=== PATIENT | female | born 1980 | race Caucasian/White ===

== ENCOUNTER 2021-02-16 17:39 | Emergency (ER) | payer MEDICAID ==
[~2021-02-16] VITALS: Ht 162.6 cm; Wt 86.0 kg
[2021-02-16 18:10] VITALS: BP 125/76
--- NOTE | 2021-02-16 18:29 | RAD ---
Three-view right ankle: AP lateral oblique views There is minimal widening of the lateral mortise. There is subtle deformity of the distal fibula with out interruption of cortex. There is soft tissue swelling over the medial malleolus. The remaining vi sualized osseous structures appear normal. IMPRESSION: 1. Minimal widening of the lateral mortise suggests ligamentous laxity or injury. 2. Deformity of the distal fibula above the level plafond could be secondary to an old injury. Electronically signed by: Dickson Duncan III, MD (02/16/2021 6:27 PM) [facility]
--- NOTE | 2021-02-16 18:40 | PHYS DOC ---
Past History Past Medical History: Anxiety, Asthma, Depression, Migraines, Seizure Additional Past Medical Histor: Complex Regional Pain Syndrome Past Surgical History: Appendectomy, , Tubal ligation Alcohol Use: Rarely Drug Use: None Adult General Chief Complaint Chief Complaint: ANKLE PROBLEM HPI HPI Patient is a 40-year-old female with a past medical history of right Achilles rupture and repair who presents with ankle pain. States has been having some ankle pain around the site over the last couple days, 6 out of 10, dull and achy in nature but has had no new traumas and states she has an appointment with the anesthesiologist/pain management for nerve block. States she called her orthopedic surgeon earlier and was directed to the ED but states she is not sure why she came here because she cannot take any opioids and states that there is nothing we can do here. Did request a new Cheko wrap. Review of Systems Review of Systems Review of systems otherwise unremarkable except noted in HPI Allergies Allergies Allergies Coded Allergies Type Severity Reaction Last Updated Verified sumatriptan Allergy Severe "Anaphylaxis" 08/17/15 Yes morphine Allergy Unknown "Anaphylaxis" 08/17/15 Yes Physical Exam Physical Exam Constitutional: Well developed, well nourished, no acute distress, non-toxic appearance. [] Skin: Warm, dry, no erythema, no rash. [] Back: No tenderness, no CVA tenderness. [] Extremities: Mild generalized tenderness around the ankle with no obvious bruising, deformities, neurovascular exam intact Neurologic: Alert and oriented X 3, able to sit, stand and walk, but walking does cause discomfort, no focal deficits noted. [] Psychologic: Affect normal, judgement normal, mood normal. [] Current Patient Data Vital Signs Vital Signs Date Time Temp Pulse Resp B/P (MAP) Pulse Ox O2 Delivery O2 Flow Rate FiO2 02/16/21 18:10 98.0 108 16 125/76 (92) 98 Room Air EKG EKG [] Radiology/Procedures Radiology/Procedures [] Heart Score C/O Chest Pain: No Risk Factors: Risk Factors: DM, Current or recent (<one month) smoker, HTN, HLP, family history of CAD, obesity. Risk Scores: Risk Factors: DM, Current or recent (<one month) smoker, HTN, HLP, family history of CAD, obesity. Course & Med Decision Making Course & Med Decision Making Patient is a 40-year-old female presents with ankle pain Vital signs not concerning. Physical exam noted above. Patient declined any pain management. Given ice pack. Imaging with no acute osseous abnormalities but widening of the mortise suggestive of soft tissue injury. Placed patient in an Cheko wrap. Advised use of crutches, which family states they have at home and will use when they get home. Advised to keep appointment in the morning. Family grateful, verbalized understanding and agreed with plan of discharge. Gave return precautions to the ED. [] Dragon Disclaimer Dragon Disclaimer This electronic medical record was generated, in whole or in part, using a voice recognition dictation system. Departure Departure: Impression: Primary Impression: Ankle pain Disposition: HOME / SELF CARE / HOMELESS Condition: STABLE Referrals: DEVENDRA LORD (PCP) Patient Instructions: Ankle Pain, RICE - Routine Care for Injuries Additional Instructions: Thank you for coming into the emergency department tonight and allowing us to take care of you. Please read the attached information carefully to go back over some of the things we discussed. Please begin a Tylenol, ibuprofen, Benadryl and ice regimen as we discussed and you are able to tolerate. Please keep your appointment in the morning for pain management. Please come back to the ED with new or concerning symptoms as we discussed. SHERMAN LEMUS MD Feb 16, 2021 18:40
== END 2021-02-16 18:48 | disposition home or self-care (01) ==
LOC: ER 17:39
DX: M25.571 Pain in right ankle and joints of right foot (principal); J45.909 Unspecified asthma, uncomplicated; Z98.51 Tubal ligation status; Z88.5 Allergy status to narcotic agent
CPT/HCPCS: 73610; 99283-25